=== PATIENT | female | born 1935 | race Caucasian/White ===

== ENCOUNTER 2018-01-11 19:45 | Observation (INO) | payer MEDICARE, OTHER ==
[~2018-01-11] VITALS: Ht 167.6 cm; Wt 104.7 kg
[~2018-01-11 19:45] MED LIST: Aspirin EC81 MG PO; HYDCHL25 PO; Hydrochloroth12.5 MG PO; LEVSOD100 PO; LEVSOD150 PO; LOSARTAN POTAS100 MG PO; Mirapex0.25 MG PO; OLME20 PO; SIMV10 PO; SIMV40 PO
[2018-01-11] MEDS ORDERED: LOSARTAN-HCTZ1 EAC1 PO (20:06)
[2018-01-11 20:16] LABS: BASOPHILS ABSOLUTE AUTO 0.02 K/mm3 (0.00-0.23); BASOPHILS PERCENT AUTO 0 % (0-2); EOSINOPHILS ABSOLUTE AUTO 0.16 K/mm3 (0.00-0.68); EOSINOPHILS PERCENT AUTO 3 % (0-6); Hematocrit 41.9 % (33.0-51.0); Hemoglobin 14.2 g/dL (11.5-16.0); IMMATURE GRAN ABSOLUTE AUTO 0.01 K/mm3 (0.00-0.10); IMMATURE GRAN PERCENT AUTO 0 % (0-1); LYMPHOCYTES ABSOLUTE AUTO 2.75 K/mm3 (0.84-5.20); LYMPHOCYTES PERCENT AUTO 42 % (21-46); MONOCYTES PERCENT AUTO 8 % (4-13); Mean Corpuscular HGB 30.9 pg (26.0-34.0); Mean Corpuscular HGB Conc 33.9 g/dL (31.5-36.5); Mean Corpuscular Volume 91 fL (80-100); Mean Platelet Volume 9.4 fL (9.1-12.4); NEUTROPHILS ABSOLUTE AUTO 3.09 K/mm3 (1.96-9.15); NEUTROPHILS PERCENT AUTO 47 % (41-73); Platelet Count 257 K/mm3 (150-400); RDW Standard Deviation 40.2 fL (35.1-46.3); White Blood Cell Count 6.53 K/mm3 (4.00-11.30)
[2018-01-11 20:32] LABS: Troponin I <0.015 ng/mL (0.000-0.040)
[2018-01-11 20:33] LABS: Anion Gap 12 mmol/L (6-16); Blood Urea Nitrogen 19 mg/dL (8-24); Bun/Creatinine Ratio 21.4 (12.0-20.0); CO2, Blood 25 mmol/L (21-32); Calcium, Blood 9.1 mg/dL (8.5-10.1); Chloride, Blood 106 mmol/L (98-108); Creatinine, Blood 0.89 mg/dL (0.40-1.00); Glomerular Filtration Rate >60 (60-); Glucose, Blood 108 mg/dL (70-99); Potassium, Blood 3.7 mmol/L (3.5-5.5); Sodium, Blood 143 mmol/L (136-145)
[2018-01-11 22:08] LABS: Source, Urine Clean Catch
[2018-01-11 22:10] LABS: Bilirubin, Urine Neg (Neg); Blood, Urine Neg (Neg); Glucose Qualitative, Urine Neg (Neg); Ketones, Urine Neg (Neg); Leukocyte Esterase, Urine 3+ (Neg); Nitrite, Urine Neg (Neg); Protein, Urine Neg (Neg); Specific Gravity, Urine 1.015 (1.003-1.022); Urobilinogen, Urine NORM (Normal); pH, Urine 6.5 (5.0-8.0)
[2018-01-11 22:30] LABS: Appearance, Urine Hazy (Clear); Color, Urine Yellow (P-Yellow); White Blood Cells, Urine 25-50 /hpf (0-5)
[2018-01-11 22:31] LABS: Bacteria Many /hpf; Squamous Epithelial Cells Mod /hpf (Few)
[2018-01-11] MEDS ORDERED: FOLI400 PO (23:46)
[2018-01-11] MEDS ORDERED: FISH OIL 1,0001 EAC1 PO (23:47)
[2018-01-12] MEDS ORDERED: Prilosec Otc20 MG PO (01:54)
[2018-01-12] MEDS ORDERED: MOTION RELIEF25 MG PO (09:49)
[2018-01-12] MEDS ORDERED: POTCHL20ER PO (09:50)
[2018-01-12] MEDS ORDERED: NITR100CA PO (09:50)
== END 2018-01-12 14:09 | disposition home or self-care (01) ==
LOC: ER 19:45 → MEDS 19:46 → ENPENDDIS 01-12 09:00 → MEDS 01-12 14:09
PROVIDERS: Emergency Medicine
DX: R42 Dizziness and giddiness (principal); R26.9 Unspecified abnormalities of gait and mobility; I10 Essential (primary) hypertension; E78.00 Pure hypercholesterolemia, unspecified; E03.9 Hypothyroidism, unspecified; M19.042 Primary osteoarthritis, left hand; M19.041 Primary osteoarthritis, right hand; M47.819 Spondylosis without myelopathy or radiculopathy, site unspecified; Z90.710 Acquired absence of both cervix and uterus; Z79.899 Other long term (current) drug therapy
CPT/HCPCS: 36415; 70450; 80048; 81001; 84484; 85025; 87086; 93005; 93010; 96374; 99285; G0378; J0360

== ENCOUNTER 2018-04-25 07:31 | Day surgery (SDC) | payer MEDICARE, OTHER ==
[~2018-04-25] VITALS: Ht 167.6 cm; Wt 105.7 kg
[~2018-04-25 07:31] MED LIST changes: +FISH OIL 1,0001 EAC1 PO; +FOLI400 PO; +LOSARTAN-HCTZ1 EAC1 PO; +MOTION RELIEF25 MG PO; +NITR100CA PO; +POTCHL20ER PO; +Prilosec Otc20 MG PO
== END 2018-04-25 11:17 | disposition home or self-care (01) ==
LOC: ORSCSDS 07:31
PROVIDERS: Ophthalmology
PROC: 080P0ZZ Alteration of Left Upper Eyelid, Open Approach (ICD-10-PCS; principal; 2018-04-25 09:00)
PROC: 080N0ZZ Alteration of Right Upper Eyelid, Open Approach (ICD-10-PCS; principal; 2018-04-25 09:00)
DX: H02.831 Dermatochalasis of right upper eyelid (principal); H02.834 Dermatochalasis of left upper eyelid; I10 Essential (primary) hypertension; E78.00 Pure hypercholesterolemia, unspecified; E03.9 Hypothyroidism, unspecified; E66.9 Obesity, unspecified; Z68.38 Body mass index [BMI] 38.0-38.9, adult; Z79.899 Other long term (current) drug therapy

== ENCOUNTER → 2019-08-23 | Outpatient (CLI) | payer MEDICARE, OTHER ==
[~2019-08-23] MED LIST changes: +CALCIUM PO; -LEVSOD150 PO; +MAGNESIUM PO; +Mirapex0.5 MG PO; +Synthroid88 MCG PO
[2019-08-23 12:06] LABS: BASOPHILS ABSOLUTE AUTO 0.02 K/mm3 (0.00-0.23); BASOPHILS PERCENT AUTO 0 % (0-2); EOSINOPHILS ABSOLUTE AUTO 0.11 K/mm3 (0.00-0.68); EOSINOPHILS PERCENT AUTO 2 % (0-6); Hematocrit 39.5 % (33.0-51.0); Hemoglobin 13.1 g/dL (11.5-16.0); IMMATURE GRAN ABSOLUTE AUTO 0.01 K/mm3 (0.00-0.10); IMMATURE GRAN PERCENT AUTO 0 % (0-1); LYMPHOCYTES PERCENT AUTO 37 % (21-46); MONOCYTES ABSOLUTE AUTO 0.37 K/mm3 (0.16-1.47); MONOCYTES PERCENT AUTO 7 % (4-13); Mean Corpuscular HGB 31.1 pg (26.0-34.0); Mean Corpuscular HGB Conc 33.2 g/dL (31.5-36.5); Mean Corpuscular Volume 94 fL (80-100); NEUTROPHILS ABSOLUTE AUTO 2.71 K/mm3 (1.96-9.15); NEUTROPHILS PERCENT AUTO 53 % (41-73); Platelet Count 256 K/mm3 (150-400); RDW Coefficient Variation 12.4 % (11.7-14.2); RDW Standard Deviation 42.7 fL (35.1-46.3); Red Blood Cell Count 4.21 M/mm3 (3.80-5.20); White Blood Cell Count 5.12 K/mm3 (4.00-11.30)
[2019-08-23 12:59] LABS: Bun/Creatinine Ratio 18.5 (12.0-20.0); Calcium, Blood 9.5 mg/dL (8.5-10.1); Creatinine, Blood 0.97 mg/dL (0.40-1.00); Potassium, Blood 3.7 mmol/L (3.5-5.5)
== END ==
LOC: LAB SHORT 11:09 → LAB 11:09
PROVIDERS: Orthopaedic Surgery
DX: R53.83 Other fatigue (principal)
CPT/HCPCS: 36415; 80048; 85025

== ENCOUNTER 2019-10-03 08:48 | Day surgery (SDC) | payer MEDICARE, OTHER ==
[~2019-10-03] VITALS: Ht 167.6 cm; Wt 102.6 kg
--- NOTE | 2019-10-03 09:18 | NUR ---
INTO SDS VIA WHEELCHAIR. PT DENIES PAIN AT THIS TIME. ABLE TO TRANSFER FROM WHEELCHAIR TO BED WITHOUT DIFFICULTY. History, Chart, Medications and Allergies reviewed before start of procedure.Lungs clear T/O to Auscultation. Patient confirms NPO status and agrees with scheduled surgery. Patient reports completing Chlorhexadine shower X2 prior to admission to hospital.Surgical site prepped with 2% Chlorhexidine cloth wipe.NOSYN AND PERIDEX DONE PER ORTHO PROTOCOL.
--- NOTE | 2019-10-03 09:52 | NUR ---
PT IS DIFFICULTY VENIPUNCTURE. US UTLIZED TO PLACE #18 PIV TO RIGHT UPPER ARM.
--- NOTE | 2019-10-03 18:59 | NUR ---
SHIFT SUMMARY PT EATING AND DRINKING. PO INTAKE BEEN ENC. PT WORKED WITH THERAPY. PT BEEN ASSISTED WITH ADL'S PRN. PT WITH MULT VISITORS TODAY. PT BEEN UP TO CHAIR TODAY.
--- NOTE | 2019-10-04 04:54 | NUR ---
SHIFT SUMMARY PT IS A/O X4 AND USES STANDBY ASSIST WITH WALKER TO BATHROOM. PT HAS AMBULATED TO BATHROOM MULT TIMES AND AMBULATED DOWN HALLWAY DURING THE SHIFT. PAIN CONTROLLED WITH PO PAIN MEDS PER ORDERS. POLAR PACK HAS BEEN IN PLACE. PT IS TOLERATING PO INTAKE AND VOIDING. ASSISTED WITH ADL'S PRN.
[2019-10-04 04:55] LABS: BASOPHILS ABSOLUTE AUTO 0.02 K/mm3 (0.00-0.23); BASOPHILS PERCENT AUTO 0 % (0-2); EOSINOPHILS PERCENT AUTO 2 % (0-6); Hematocrit 33.2 % (33.0-51.0); Hemoglobin 10.8 g/dL (11.5-16.0); IMMATURE GRAN ABSOLUTE AUTO 0.02 K/mm3 (0.00-0.10); IMMATURE GRAN PERCENT AUTO 0 % (0-1); LYMPHOCYTES ABSOLUTE AUTO 0.86 K/mm3 (0.84-5.20); LYMPHOCYTES PERCENT AUTO 16 % (21-46); MONOCYTES PERCENT AUTO 8 % (4-13); Mean Corpuscular HGB 30.9 pg (26.0-34.0); Mean Corpuscular HGB Conc 32.5 g/dL (31.5-36.5); Mean Platelet Volume 9.5 fL (9.1-12.4); NEUTROPHILS ABSOLUTE AUTO 3.93 K/mm3 (1.96-9.15); NEUTROPHILS PERCENT AUTO 74 % (41-73); Platelet Count 170 K/mm3 (150-400); RDW Coefficient Variation 12.5 % (11.7-14.2); RDW Standard Deviation 43.1 fL (35.1-46.3); White Blood Cell Count 5.33 K/mm3 (4.00-11.30)
[2019-10-04 04:58] LABS: Mean Corpuscular Volume 95 fL (80-100)
[2019-10-04 05:16] LABS: Bun/Creatinine Ratio 18.8 (12.0-20.0); Calcium, Blood 7.9 mg/dL (8.5-10.1); Creatinine, Blood 1.28 mg/dL (0.40-1.00); Magnesium, Blood 1.8 mg/dL (1.6-2.4); Potassium, Blood 3.6 mmol/L (3.5-5.5)
--- NOTE | 2019-10-04 07:40 | NUR ---
DR RASCON HERE TO SEE PT, CHANGING DRESSING.
[2019-10-04] MEDS ORDERED: ROXICODONE5 MG PO (08:03)
[2019-10-04] MEDS ORDERED: ASPI325EC PO (08:03)
[2019-10-04] MEDS ORDERED: BACTRIM DS TAB1 EACH PO (08:04)
[2019-10-04] MEDS ORDERED: PROM25 PO (08:04)
--- NOTE | 2019-10-04 09:39 | NUR ---
10/04/19 0939 Cheri Hernandez VERIFICATIONS: EDIT CHART.
--- NOTE | 2019-10-04 14:54 | NUR ---
DISCHARGE; PT EATING AND DRINKING, PASSING GAS, VOIDING. PT REPORTS NO DIZZINESS/LIGHTHEADEDNESS. PT REPORTS PAIN CONTROLLED ON PO PAIN MEDICATION. PT REPORTS HAVING MEDICATIONS AND WALKER AT HOME. PT SENT WITH ICE MACHINE AND OTHER BELONGINGS. PT SENT WITH PAPERWORK. PT BEEN CLEARED BY THERAPY TO GO HOME. PT/FAMILY REPORTS UNDERSTANDING OF DISCHARGE INSTRUCTIONS.
== END 2019-10-04 15:02 | disposition home or self-care (01) ==
LOC: ORSCMMR 08:48 → PRE IP 10:30 → EDSTATUS 10:30 → SURS 13:48 → ORSCMMR 10-04 15:02
PROVIDERS: Orthopaedic Surgery
PROC: 8E0YXBZ Computer Assisted Procedure of Lower Extremity (ICD-10-PCS; principal; 2019-10-03 10:30)
PROC: 0SRB0JA Replacement of Left Hip Joint with Synthetic Substitute, Uncemented, Open Approach (ICD-10-PCS; principal; 2019-10-03 10:30)
DX: M16.12 Unilateral primary osteoarthritis, left hip (principal); I10 Essential (primary) hypertension; E78.5 Hyperlipidemia, unspecified; E03.9 Hypothyroidism, unspecified; Z79.899 Other long term (current) drug therapy; E66.01 Morbid (severe) obesity due to excess calories; Z68.36 Body mass index [BMI] 36.0-36.9, adult
CPT/HCPCS: 36415; 72170; 80048; 83735; 85025; 88300; 97110; 97116; 97162; 97166; 97530; 97535; A9270-GY; C1713; C1776; J0171; J0690; J0735; J1885; J2250; J2405; J2704; J2795; J3370; J7120

== ENCOUNTER 2021-05-13 17:12 | Emergency (ER) | payer MEDICARE, OTHER ==
[~2021-05-13] VITALS: Ht 165.1 cm; Wt 98.9 kg
[~2021-05-13 17:12] MED LIST changes: +ASPI325EC PO; +BACTRIM DS TAB1 EACH PO; +PROM25 PO; +ROXICODONE5 MG PO
[2021-05-13 17:45] LABS: BASOPHILS ABSOLUTE AUTO 0.03 K/mm3 (0.00-0.23); BASOPHILS PERCENT AUTO 0 % (0-2); EOSINOPHILS PERCENT AUTO 1 % (0-6); Hematocrit 39.9 % (33.0-51.0); Hemoglobin 13.3 g/dL (11.5-16.0); IMMATURE GRAN ABSOLUTE AUTO 0.01 K/mm3 (0.00-0.10); IMMATURE GRAN PERCENT AUTO 0 % (0-1); LYMPHOCYTES ABSOLUTE AUTO 2.42 K/mm3 (0.84-5.20); LYMPHOCYTES PERCENT AUTO 30 % (21-46); MONOCYTES ABSOLUTE AUTO 0.63 K/mm3 (0.16-1.47); MONOCYTES PERCENT AUTO 8 % (4-13); Mean Corpuscular HGB Conc 33.3 g/dL (31.5-36.5); Mean Corpuscular Volume 93 fL (80-100); Mean Platelet Volume 9.2 fL (9.1-12.4); NEUTROPHILS ABSOLUTE AUTO 4.87 K/mm3 (1.96-9.15); NEUTROPHILS PERCENT AUTO 61 % (41-73); Platelet Count 293 K/mm3 (150-400); RDW Coefficient Variation 12.2 % (11.7-14.2); RDW Standard Deviation 41.7 fL (35.1-46.3); Red Blood Cell Count 4.29 M/mm3 (3.80-5.20); White Blood Cell Count 8.06 K/mm3 (4.00-11.30)
[2021-05-13 18:06] LABS: Alanine Aminotransfer (ALT/SGP 19 U/L (12-78); Albumin, Blood 3.4 g/dL (3.4-5.0); Albumin/Globulin Ratio 0.9 (0.8-1.8); Alk Phos 85 U/L (50-136); Anion Gap 6 mmol/L (6-16); Aspartate Aminotrans (AST/SGOT 14 U/L (12-37); Bilirubin, Total 0.5 mg/dL (0.1-1.0); Blood Urea Nitrogen 18 mg/dL (8-24); Bun/Creatinine Ratio 16.5 (12.0-20.0); CO2, Blood 27 mmol/L (21-32); Calcium, Blood 9.6 mg/dL (8.5-10.1); Chloride, Blood 103 mmol/L (98-108); Creatinine, Blood 1.09 mg/dL (0.40-1.00); Globulin, Blood 3.6 g/dL (2.2-4.0); Glomerular Filtration Rate 48 (60-); Glucose, Blood 88 mg/dL (70-99); Potassium, Blood 3.9 mmol/L (3.5-5.5); Sodium, Blood 136 mmol/L (136-145); Troponin I <0.015 ng/mL (0.000-0.040)
[2021-05-13] MEDS ORDERED: LOSA50 PO (20:32)
[2021-05-13] MEDS ORDERED: HYDCHL25 PO (20:32)
[2021-05-13] MEDS ORDERED: ALMACONE SUSPE355 ML PO (21:41)
== END 2021-05-13 21:55 | disposition home or self-care (01) ==
LOC: ER 17:12
PROVIDERS: Physician Assistant
DX: K30 Functional dyspepsia (principal); I10 Essential (primary) hypertension; Z79.899 Other long term (current) drug therapy
CPT/HCPCS: 36415; 71046; 80053; 83690; 84484; 85025; 93005; 93010; 96374; 99285-25; A9270; J2405

== ENCOUNTER → 2022-04-13 | Outpatient (CLI) | payer MEDICARE, OTHER ==
[~2022-04-13] MED LIST changes: +ALMACONE SUSPE355 ML PO; +IBUP400 PO; +LEVO T PO; +LOSA50 PO; +LOSARTAN-HCTZ1 EACH PO; +MIRAPEX PO; +MULTI-VITAMIN1 EAC2 PO; +PRAM.5 PO; +Percocet 5-3251 EACH PO; +Simvastatin40 MG PO
== END ==
LOC: LAB SHORT 18:43
DX: R30.0 Dysuria (principal); M54.9 Dorsalgia, unspecified

== ENCOUNTER 2022-04-14 20:59 | Emergency (ER) | payer MEDICARE, OTHER ==
[~2022-04-14] VITALS: Ht 165.1 cm; Wt 99.8 kg
[~2022-04-14 20:59] MED LIST changes: -Percocet 5-3251 EACH PO
[2022-04-14] MEDS ORDERED: Percocet 5-3251 EACH PO (23:36)
== END 2022-04-15 00:15 | disposition home or self-care (01) ==
LOC: ER 20:59
DX: M79.18 Myalgia, other site (principal); M43.17 Spondylolisthesis, lumbosacral region; N39.0 Urinary tract infection, site not specified; I10 Essential (primary) hypertension; E03.9 Hypothyroidism, unspecified; E78.00 Pure hypercholesterolemia, unspecified; Z79.899 Other long term (current) drug therapy
CPT/HCPCS: 72100; 96374; 96375; 99283-25; A9270; J2405; J3010

== ENCOUNTER → 2024-07-16 | Outpatient (CLI) | payer OTHER ==
[~2024-07-16] MED LIST changes: +GABA100 PO; +METO25ER; +Percocet 5-3251 EACH PO
[2024-07-16 11:00] LABS: BASOPHILS ABSOLUTE AUTO 0.03 K/mm3 (0.00-0.23); BASOPHILS PERCENT AUTO 0 % (0-2); EOSINOPHILS ABSOLUTE AUTO 0.05 K/mm3 (0.00-0.68); EOSINOPHILS PERCENT AUTO 1 % (0-6); Hematocrit 38.2 % (33.0-51.0); Hemoglobin 12.4 g/dL (11.5-16.0); IMMATURE GRAN ABSOLUTE AUTO 0.01 K/mm3 (0.00-0.10); IMMATURE GRAN PERCENT AUTO 0 % (0-1); LYMPHOCYTES ABSOLUTE AUTO 1.05 K/mm3 (0.84-5.20); LYMPHOCYTES PERCENT AUTO 16 % (21-46); MONOCYTES ABSOLUTE AUTO 0.47 K/mm3 (0.16-1.47); MONOCYTES PERCENT AUTO 7 % (4-13); Mean Corpuscular HGB 31.7 pg (26.0-34.0); Mean Corpuscular HGB Conc 32.5 g/dL (31.5-36.5); Mean Corpuscular Volume 98 fL (80-100); Mean Platelet Volume 9.3 fL (9.1-12.4); NEUTROPHILS ABSOLUTE AUTO 5.11 K/mm3 (1.96-9.15); NEUTROPHILS PERCENT AUTO 76 % (41-73); Platelet Count 183 K/mm3 (150-400); RDW Coefficient Variation 13.2 % (11.7-14.2); RDW Standard Deviation 47.1 fL (35.1-46.3); Red Blood Cell Count 3.91 M/mm3 (3.80-5.20); White Blood Cell Count 6.72 K/mm3 (4.00-11.30)
[2024-07-16 11:12] LABS: Bun/Creatinine Ratio 16.3 (12.0-20.0); Calcium, Blood 9.3 mg/dL (8.5-10.1); Creatinine, Blood 1.29 mg/dL (0.40-1.00); Potassium, Blood 3.9 mmol/L (3.5-5.5)
== END | disposition home or self-care (01) ==
LOC: LAB SHORT 10:56 → LAB 10:56
PROVIDERS: Physician Assistant Medical
DX: R06.00 Dyspnea, unspecified (principal)
CPT/HCPCS: 80048; 83880; 85025